=== PATIENT | male | born 1955 | race Caucasian/White ===

== ENCOUNTER 2016-07-31 16:55 | Inpatient (IN) | payer SELFPAY ==
--- NOTE | 2016-07-31 17:46 | Emergency Department Report ---
Chief Complaint: Abdominal Pain Stated Complaint: ABNORMAL LABS - HPI History of Present Illness: Patient c/o right-sided abdominal pain x 5 days for which he was evaluated at a clinic yesterday. Reports fever, lack of appetite, weakness, nausea, vomiting. States rx meds (Omeprazole, Flexeril, Levsin) which are helping his pain. States told to come to ED due to abnormal lab results. - Exam Vital Signs: Vital Signs 07/31/16 17:15 Temperature 101.1 F H Pulse Rate 125 H Respiratory 18 Rate Blood Pressure 118/73 [Right] O2 Sat by Pulse 94 Oximetry Physical Exam: General: NAD. Abdomen: Mild LLQ tenderness. MSE screening note: Focused history and physical exam performed. Due to findings the following was ordered: ED Medical Decision Making - Medical Decision Making CBC, CMP, Lipase will be ordered. Patient to see MD in main ED. ED Disposition for MSE Condition: Stable
[2016-07-31 18:36] LABS: Basophils % (Auto) 0.4 % (0.0-1.8); Eosinophils % (Auto) 0.1 % (0.0-4.3); Hematocrit 41.9 % (35.5-45.6); Hemoglobin 14.1 gm/dl (11.8-15.2); Mean Corpuscular HGB Conc 34 % (32-34); Mean Corpuscular Hemoglobin 30 pg (28-32); Mean Corpuscular Volume 90 fl (84-94); Platelet Count 205 K/mm3 (140-440); Red Blood Count 4.65 M/mm3 (3.65-5.03); Red Cell Distribution Width 13.7 % (13.2-15.2); White Blood Count 10.7 K/mm3 (4.5-11.0)
[2016-07-31 18:49] LABS: Albumin 3.7 g/dL (3.9-5); Albumin/Globulin Ratio 1.1 %; BUN/Creatinine Ratio 12.66; Bilirubin,Total 1.9 mg/dL (0.1-1.2); Calcium 8.2 mg/dL (8.4-10.2); Chloride 89.5 mmol/L (98-107); Potassium 4.1 mmol/L (3.6-5.0)
[2016-08-01 06:32] LABS: Bilirubin,Urine NEG (Negative); Blood,Urine MOD (Negative); Ketones,Urine NEG (Negative); Leukocyte Esterase,Urine NEG (Negative); Mucus,Urine 1+ /HPF; Nitrite,Urine NEG (Negative)
[2016-08-01] MEDS ORDERED: NACL ONE (11:53)
[2016-08-01] MEDS ORDERED: MORPHINE IV ONE ×2 (12:30→14:36)
[2016-08-01] MEDS ORDERED: NACL 0.9% 1000 ML 1,000 ML IV ONE (12:30)
[2016-08-01] MEDS ORDERED: TYLENOL PO ONE (12:31)
--- NOTE | 2016-08-01 14:21 | Cat Scan Report ---
CT of the abdomen and pelvis with IV contrast. Findings: There are bibasilar linear parenchymal opacities in the lung bases. There are multiple ill-defined areas of hypodensity in the liver parenchyma distributed around the margin of the gallbladder. There is at least one gallstone. There appears be mild pericholecystic fluid. The wall of the gallbladder is borderline in thickness measuring 4 mm. The spleen and pancreas are normal. There is a 1.5 x 2.0 cm soft tissue nodule in the left adrenal gland. The kidneys are normal in size and configuration. There are bilateral small renal cysts, the largest of which in the left kidney measures 1.5 cm in diameter. No hydronephrosis is seen. There is a very large densely calcified stone in the urinary bladder with irregular margins. This measures approximately 4.5 cm in diameter. There are no pelvic masses or abnormal fluid collections. There is no mesenteric inflammation. Impression: 1. Cholelithiasis with minimal pericholecystic fluid and borderline gallbladder wall thickening. The ill-defined areas of hypodensity in the liver which is adjacent to the gallbladder raises the possibility of small hepatic abscesses. Acute cholecystitis is suspected. 2. Left adrenal nodule, probably benign. 3. Multiple bilateral small renal cysts. 4. Large intravesical calcification/stone.
[2016-08-01] MEDS ORDERED: ZOFRAN IV ONE (14:36)
[2016-08-01] MEDS ORDERED: BABY ASPIRIN PO ONE (14:39)
--- NOTE | 2016-08-01 14:39 | Emergency Department Report ---
HPI - General Chief Complaint: Abdominal Pain Time Seen by Provider: 08/01/16 11:39 - HPI HPI: The patient is a 61-year-old male who presents for evaluation of abdominal pain. The patient reports right upper quadrant abdominal pain for the past 4-5 days, progressive, severe since last night, currently moderate, sharp in quality , exacerbated with eating, and associated with nausea and nonbilious, nonbloody emesis. The patient denies chest pain, dyspnea, diarrhea, blood in the stool, dark tarry stool, dysuria, hematuria, flank pain, genital discharge, inability to pass flatus. ED Past Medical Hx - Past Medical History Hx Hypertension: Yes - Surgical History Additional Surgical History: hernia right - Medications Home Medications: Home Medications Medication Instructions Recorded Confirmed Last Taken Type Acetaminophen [Tylenol] 500 mg PO Q6HR PRN 08/01/16 08/01/16 07/31/16 History Cyclobenzaprine [Flexeril] 10 mg PO QHS 08/01/16 08/01/16 07/31/16 History Hyoscyamine Subl [Levsin Sl 0.125 0.125 mg SL Q8H PRN 08/01/16 08/01/16 History TAB] Omeprazole Magnesium [PriLOSEC Otc] 20 mg PO BID 08/01/16 08/01/16 07/31/16 History ED Review of Systems ROS: Stated complaint: ABNORMAL LABS Other details as noted in HPI Constitutional: denies: fever ENT: denies: throat or neck pain Respiratory: denies: cough, shortness of breath Cardiovascular: denies: chest pain Endocrine: denies unexplained weight loss or gain Gastrointestinal: reports abdominal pain, nausea Genitourinary: denies: dysuria Musculoskeletal: denies: leg swelling Skin: denies: rash Neurological: denies: headache Hematological/Lymphatic: denies: easy bleeding or easy bruising Psych: denies sadness or hopelessness Physical Exam - Physical Exam Vital Signs: Vital Signs 07/31/16 08/01/16 08/01/16 17:15 03:50 08:12 Temperature 101.1 F H 98.2 F 99.6 F Pulse Rate 125 H 72 84 Respiratory 18 20 18 Rate Blood Pressure 130/90 Blood Pressure 118/73 122/87 [Right] O2 Sat by Pulse 94 99 98 Oximetry 08/01/16 12:07 Temperature 100.7 F H Pulse Rate 90 Respiratory 18 Rate Blood Pressure Blood Pressure 142/82 [Right] O2 Sat by Pulse 98 Oximetry Physical Exam: General: well-nourished, well-developed, no acute distress Head: Normocephalic, atraumatic Eyes: normal sclera ENT: Mucous membranes are pink and moist Neck: trachea midline, neck supple, No neck stiffness, no cervical adenopathy Respiratory: Breath sounds equal bilaterally, no wheezing, rales, or rhonchi Cardio: S1 and S2 present, no murmurs, rubs, gallops, capillary refill is brisk Abdomen: Normoactive bowel sounds, soft abdomen, RUQ tenderness to palpation present, no rigidity, no guarding or rebound tenderness Musc: No pitting edema Skin: No rash Neuro: no facial drooping, normal speech Psych: Normal affect ED Course Vital Signs 07/31/16 08/01/16 08/01/16 17:15 03:50 08:12 Temperature 101.1 F H 98.2 F 99.6 F Pulse Rate 125 H 72 84 Respiratory 18 20 18 Rate Blood Pressure 130/90 Blood Pressure 118/73 122/87 [Right] O2 Sat by Pulse 94 99 98 Oximetry 08/01/16 12:07 Temperature 100.7 F H Pulse Rate 90 Respiratory 18 Rate Blood Pressure Blood Pressure 142/82 [Right] O2 Sat by Pulse 98 Oximetry ED Medical Decision Making - Lab Data Result diagrams: 07/31/16 18:16 07/31/16 18:16 - Medical Decision Making The patient was seen and examined by myself. The patient is placed on a night monitor and continuous pulse ox. On initial evaluation, the patient was found to be in no distress. Evaluation orders were placed. The patient is given a tablet of Tylenol for his fever. The patient given IV morphine for his pain, Zofran, and 1 L normal saline fluid bolus. Lab results reveal elevated LFTs, high range of normal WBC of 10.7, and otherwise labs were grossly not concerning. CAT scan of the abdomen reveals cholelithiasis, pericholecystic fluid, and mild gallbladder wall thickening, consistent with acute cholecystitis. The patient is administered IV Zosyn. The on-call hospitalist service was contacted. They agreed to admit the patient for further treatment and close monitoring. The ED admit order was placed. The on-call general surgeon Dr. Powell was contacted. He agreed to consultation. The patient was admitted in guarded condition. Critical care attestation.: If time is entered above; I have spent that time in minutes in the direct care of this critically ill patient, excluding procedure time. ED Disposition Clinical Impression: Cholecystitis, acute, Acute abdominal pain in right upper quadrant Sepsis Qualifiers: Sepsis type: sepsis due to unspecified organism Qualified Code(s): A41.9 - Sepsis, unspecified organism Disposition: OP ADMITTED IP TO THIS HOSP Is pt being admited?: Yes Does the pt Need Aspirin: Yes Condition: Stable Referrals: PRIMARY CARE, [Primary Care Provider] - 3-5 Days Time of Disposition: 14:19
--- NOTE | 2016-08-01 14:54 | Admit Criteria Form ---
Admission Criteria Documentation: GALLBLADDER OR BILE DUCT INFLAMMATION OR STONE Clinical Indications for Admission to Inpatient Care ( Place 'X' for any and all applicable criteria): Admission is indicated for patients with ANY ONE of the following(1)(2)(3)(4)(5) : [X ]I. Acute cholecystitis as indicated by ALL of the following: [ X]a) Right upper quadrant pain, mass, or tenderness [X ]b) Systemic signs of inflammation indicated by ANY ONE of the following: [X ]i) Fever [ ]ii) C-reactive protein level greater than 10 mg/L (95 nmol/L) [ ]iii) White blood cell count greater than 10,000/mm3 (10 x109/L) or less than 4000/mm3 (4 x109/L) [ ]II. Inpatient admission required rather than observation care (Also use Gallbladder or Bile Duct Inflammation or Stone: Observation Care as appropriate) because of ANY ONE of the following: [ ]a) Common bile duct obstruction diagnosed [ ]b) Vomiting that is severe or persistent [ ]c) Severe pain requiring acute inpatient management [ ]d) Signs of intestinal obstruction or peritonitis [A] [ ]e) Severe electrolyte abnormalities requiring inpatient care [ ]f) Absent bowel sounds with complete ileus(8) [ ]g) Hemodynamic instability [ ]h) High fever or infection requiring inpatient admission as indicated by ANY ONE of the following (9): [ ]1) Appropriate outpatient or observation care antimicrobial Treatment. unavailable, not effective, or not feasible [ ]2) Temperature greater than 104.9 degrees F (40.5 degrees C) (oral) [ ]3) Temperature greater than 103.1 degrees F (39.5 degrees C) (oral) or less than 96.8 degrees F (36 degrees C) (rectal) that does not respond to all emergency treatment measures [ ]4) Documented bacteremia [ ]i) IV fluid to replace significant ongoing losses (greater than 3 L/m2 per day) [ ]j) Percutaneous or open drainage (eg, abscess, biliary tract) procedures [ ]k) Immediate inpatient surgery [ ]l) Other condition, treatment or monitoring requiring inpatient admission [ ]III. Acute cholangitis as indicated by ALL of the following(9)(10): [ ]a) Systemic signs of inflammation indicated by ANY ONE of the following: [ ]i) Fever [ ]ii) C-reactive protein level greater than 10 mg/L (95 nmol /L) [ ]iii) White blood cell count greater than 10,000/mm3 (10 x109/L) or less than 4000/mm3 (4 x109/L) [ ]b) Evidence of common bile duct disease indicated by ANY ONE of the following: [ ]i) Total serum bilirubin level greater than or equal to 2 mg/dL (34 micromoles/L) [ ]ii) Liver function test (alkaline phosphatase (ALP), r- glutamyltransferase (GGT), aspartate aminotransferase (AST), or alanine aminotransferase (ALT)) greater than 1.5 times the upper limit of normal[B] [ ]iii) Hepatobiliary imaging showing biliary dilatation or evidence of etiology (eg, stricture, stone, previously placed stent) Extended stay beyond goal length of stay may be needed for (1)(2)): [ ]a) Bacteremia or Hemodynamic instability [ ]b) Cholecystectomy [ ]c) Other surgical procedure(24) [ ]d) Percutaneous or endoscopic ultrasound-guided cholecystostomy The original [facility] content created by [facility] has been revised. The portions of the content which have been revised are identified through the use of italic text or in bold, and [facility] has neither reviewed nor approved the modified material. All other unmodified content is copyright [facility]. Please see references footnoted in the original [facility] edition 2016 Admission Criteria Met: Yes
[2016-08-01] MEDS: ZOSYN/NS 3.375GM/50ML 50 ML IV SCH ×3 (15:09→23:25)
[2016-08-01 15:48] LABS: INR 1.14 (0.87-1.13)
[2016-08-01 15:49] LABS: Partial Thromboplastin Time 27.7 Sec. (24.2-36.6)
--- NOTE | 2016-08-01 19:50 | Consultation ---
History of Present Illness Consult date: 08/01/16 Reason for consult: gallstones Chief complaint: Cholelithiasis. - History of present illness History of present illness: 61 years old male admitted to the hospital because of cholelithiasis and cholecystitis. We are consulted for surgical management. At the time of myelomalacia and the patient denies any pain. CT scan of the abdomen showed a gallstone in incidental finding of a urinary bladder stone. Patient reports that pain yesterday with some nausea and vomiting at home. Was seen at an outside clinic and an ultrasound showed gallstones. Past History Past Medical History: hypertension (borderline) Past Surgical History: hernia repair (right inguinal.) Social history: Medications and Allergies Allergies Allergy/AdvReac Type Severity Reaction Status Date / Time No Known Allergies Allergy Verified 08/01/16 11:56 Home Medications Medication Instructions Recorded Confirmed Last Taken Type Acetaminophen [Tylenol] 500 mg PO Q6HR PRN 08/01/16 08/01/16 07/31/16 History Cyclobenzaprine [Flexeril] 10 mg PO QHS 08/01/16 08/01/16 07/31/16 History Hyoscyamine Subl [Levsin Sl 0.125 0.125 mg SL Q8H PRN 08/01/16 08/01/16 History TAB] Omeprazole Magnesium [PriLOSEC Otc] 20 mg PO BID 08/01/16 08/01/16 07/31/16 History Active Meds: Active Medications Piperacillin Sod/Tazobactam Sod (Zosyn/Ns 3.375gm/50ml) 50 mls @ 100 mls/hr IV Q6HR [facility] Last Admin: 08/01/16 18:43 Dose: 100 mls/hr Influenza Virus Vaccine Quadrival (Fluarix Quad [id number](36 Mos+)) 60 mcg IM .ONCE ONE Stop: 08/02/16 12:01 Review of Systems - Gastrointestinal abdominal pain, nausea, vomiting, loss of appetite - Genitourinary urinary frequency Exam Vital Signs Temp Pulse Resp BP Pulse Ox 101.1 F H 125 H 18 118/73 94 07/31/16 17:15 07/31/16 17:15 07/31/16 17:15 07/31/16 17:15 07/31/16 17:15 - General physical appearance Positive: well developed, well nourished, no distress - Eyes Positive: PERRL, normal occular movement - ENT Positive: normal pinna, normal nares, normal mucosa, no hearing loss, no congestion - Neck Positive: no masses, no bruits, trachea midline, no venous distension - Respiratory Positive: normal expansion, normal respiratory effort, clear to auscultation - Cardiovascular Rhythm: regular Heart Sounds: Present: S1 & S2. Absent: rub, click - Extremities Extremities: no ischemia, pulses symmetrical, No edema - Breasts Breasts: normal, no mass, no skin changes - Abdomen Abdomen: Present: soft, bowel sounds normal. Absent: tender, distended - Genitourinary Male Genitourinary: deferred - Integumentary other (epidermal inclusion cyst on the mid back) - Neurologic Neurologic: alert and oriented to time, place and person, motor strength and sensation are grossly intact - Musculoskeletal normal gait, normal posture - Psychiatric Psychiatric: appropriate mood/affect, intact judgment & insight Results - Labs 07/31/16 18:16 07/31/16 18:16 - Imaging CT scan - abdomen: report reviewed, image reviewed Assessment and Plan Impression: #1. Cholelithiasis and cholecystitis. 2. Cystolithiasis. Recommendations: Laparoscopic cholecystectomy. The patient was explained the operative procedure. We also discussed risk and complications. Requested us to perform the procedure.
--- NOTE | 2016-08-02 03:23 | Event Note ---
Date: 08/01/16 Acute cholecystitis Transaminitis
[2016-08-02] MEDS ORDERED: DILAUDID IV PRN ×2 (03:26→12:09)
--- NOTE | 2016-08-02 04:15 | History and Physical Report ---
CHIEF COMPLAINT: Right upper quadrant pain for the last 5 days. HISTORY OF PRESENT ILLNESS: A 61-year-old male, who comes in for right upper quadrant pain for the last 5 days. It is better now. His pain has been sharp and associated with nausea and vomiting x 2. Denies any chest pain. The pain is about 8 to 10 on a scale of 1 to 10, but now it is 0/10. PAST MEDICAL HISTORY: Significant for gastroesophageal reflux disease and hypertension, not on any medication for blood pressure. PAST SURGICAL HISTORY: surgery. FAMILY HISTORY: No hypertension, no diabetes. SOCIAL HISTORY: Does not smoke. No alcohol, no recreational drugs. REVIEW OF SYSTEMS: CONSTITUTIONAL: No weight loss. No fever, no chills. HEENT: No sore throat. No postnasal drip. CARDIOVASCULAR AND RESPIRATORY SYSTEM: No shortness of breath, no chest pain. GASTROINTESTINAL: Some right upper quadrant pain, nausea, and vomiting x2 present. GENITOURINARY SYSTEM: No urinary frequency. CENTRAL NERVOUS SYSTEM: No syncope, no seizures. A 14-point review of systems done, otherwise essentially negative other than the right upper quadrant pain, which has resolved now. PHYSICAL EXAMINATION: GENERAL: Elderly male, cooperative during examination. VITAL SIGNS: Temperature 101.5, pulse is , blood pressure 118/73, and saturations were ____ 94%. HEENT: Unremarkable. Pupils are equal and reactive. NECK: Supple, no lymphadenopathy, no thyromegaly. LUNGS: Clear to auscultation and percussion. Good air entry. CARDIOVASCULAR: S1, S2 heard. No gallop, no murmur, no rub. Apical impulse in left fifth intercostal space and midclavicular line. ABDOMEN: Right upper quadrant tenderness present. No guarding, no rigidity. Hernial offices are normal. Bowel sounds are normal. EXTREMITIES: Good pedal pulses. No pedal edema. CENTRAL NERVOUS SYSTEM: Alert and oriented x 4, nonfocal exam. LABORATORY DATA: CT of the abdomen is consistent with acute cholecystitis. ASSESSMENT AND PLAN: 1. Acute cholecystitis. IV Zosyn, Surgery consult requested. 2. Hypertension, questionable. His blood pressure has been normal. Not on any blood pressure medications. 3. Gastroesophageal reflux disease. Continue omeprazole. Currently, he is n.p.o. for the time being. 4. Deep venous thrombosis prophylaxis, Lovenox 40 mg subcutaneous daily. My recommendations ____ laparoscopic cholecystectomy in the a.m. The patient is medically cleared for surgery. JOB# [id number] SHERI/MOMO
[2016-08-02] MEDS: ZOSYN/NS 3.375GM/50ML 50 ML IV SCH ×3 (06:16→18:00)
[2016-08-02] MEDS ORDERED: DIPRIVAN 10 MG/ML IV ONE (08:37)
[2016-08-02] MEDS ORDERED: DILAUDID ONE ×2 (08:38→10:32)
--- NOTE | 2016-08-02 09:08 | Anesthesia Day of Surgery ---
Anesthesia Day of Surgery - Day of Surgery Patient Examined: Yes Patient H&P Reviewed: Yes Patient is NPO: Yes
[2016-08-02] MEDS ORDERED: VERSED IV NR (09:10)
--- NOTE | 2016-08-02 09:10 | Anesthesia Consultation ---
Anesthesia Consult and Med Hx Date of service: 08/02/16 - Airway Anesthetic Teeth Evaluation: Bridges (permanent upper and lower) Mallampati Class: Class III Intubation Access Assessment: Possibly Difficult - Pulmonary Exam CTA: Yes - Cardiac Exam Cardiac Exam: RRR - Pre-Operative Health Status ASA Pre-Surgery Classification: ASA2 Proposed Anesthetic Plan: General - Pulmonary Hx Smoking: No Hx Asthma: No COPD: No Hx Pneumonia: No Hx Sleep Apnea: Yes (high risk) - Cardiovascular System Hx Hypertension: Yes (not on any medications) - Central Nervous System Hx Seizures: No CVA: No Hx Psychiatric Problems: No - Gastrointestinal Hx Gastroesophageal Reflux Disease: Yes - Endocrine Hx Renal Disease: No Hx End Stage Renal Disease: No Hx Liver Disease: No - Other Systems Hx Cancer: No Hx Obesity: Yes - Additional Comments Anesthesia Medical History Comments: NAC
[2016-08-02] MEDS ORDERED: LACTATED RINGERS 1,000 ML IV SCH (10:00)
[2016-08-02] MEDS ORDERED: PEPCID PO NR (10:00)
[2016-08-02] MEDS ORDERED: NACL 0.9% IR ONE (10:01)
[2016-08-02] MEDS ORDERED: MARCAINE 0.5% INFILTRATI ONE (10:01)
[2016-08-02] MEDS ORDERED: XYLOCAINE MPF 2% ONE (10:03)
[2016-08-02] MEDS ORDERED: ZEMURON IV ONE (10:04)
[2016-08-02] MEDS ORDERED: BLOXIVERZ ONE (10:11)
[2016-08-02] MEDS ORDERED: ROBINUL ONE (10:12)
--- NOTE | 2016-08-02 10:26 | History and Physical Report ---
History of Present Illness Date of examination: 08/02/16 Date of admission: 08/01/16 15:08 Chief complaint: Abdominal pain, nausea, vomiting, fever and weakness for 5 days History of present illness: Patient is a 61-year-old male who was experiencing right upper quadrant abdominal pain, nausea and vomiting, fever, loss of appetite and weakness for 5 days. Patient was referred to the emergency department because of abnormal lab results. CT scan of the abdomen was obtained and it showed cholelithiasis, minimal pericholecystic fluid and borderline gallbladder wall thickening. Surgical consult was obtained and laparoscopic cholecystectomy was done Past History Past Medical History: GERD, hypertension (borderline) Past Surgical History: hernia repair (right inguinal.) Social history: Medications and Allergies Allergies Allergy/AdvReac Type Severity Reaction Status Date / Time No Known Allergies Allergy Verified 08/01/16 11:56 Home Medications Medication Instructions Recorded Confirmed Last Taken Type Acetaminophen [Tylenol] 500 mg PO Q6HR PRN 08/01/16 08/01/16 07/31/16 History Cyclobenzaprine [Flexeril] 10 mg PO QHS 08/01/16 08/01/16 07/31/16 History Hyoscyamine Subl [Levsin Sl 0.125 0.125 mg SL Q8H PRN 08/01/16 08/01/16 History TAB] Omeprazole Magnesium [PriLOSEC Otc] 20 mg PO BID 08/01/16 08/01/16 07/31/16 History Active Meds: Active Medications Enoxaparin Sodium (Lovenox) 40 mg SUB-Q QDAY [facility] Famotidine (Pepcid) 20 mg PO PREOP NR Stop: 08/02/16 23:59 Last Admin: 08/02/16 09:27 Dose: 20 mg Hydromorphone HCl (Dilaudid) 1 mg IV Q3H PRN PRN Reason: Pain , Severe (7-10) Piperacillin Sod/Tazobactam Sod (Zosyn/Ns 3.375gm/50ml) 50 mls @ 100 mls/hr IV Q6HR [facility] Last Admin: 08/02/16 06:16 Dose: 100 mls/hr Lactated Ringer's (Lactated Ringers) 1,000 mls @ 75 mls/hr IV DIRECT [facility] Last Admin: 08/02/16 09:27 Dose: 75 mls/hr Influenza Virus Vaccine Quadrival (Fluarix Quad [id number](36 Mos+)) 60 mcg IM .ONCE ONE Stop: 08/02/16 12:01 Midazolam HCl (Versed) 2 mg IV PREOP NR Stop: 08/02/16 23:59 Last Admin: 08/02/16 09:28 Dose: 2 mg Review of Systems Constitutional: fever, weakness, poor appetite Ears, nose, mouth and throat: no ear pain, no nasal congestion, no dysphagia, no headache Cardiovascular: no chest pain, no palpitations, no shortness of breath, no dyspnea on exertion Respiratory: no cough, no shortness of breath, no wheezing Gastrointestinal: abdominal pain, nausea, vomiting, loss of appetite, no change in bowel habits, no BRBPR, no melena Genitourinary Male: no dysuria, no hematuria, no flank pain, no urinary frequency Musculoskeletal: no neck pain, no low back pain, no shooting leg pain, no muscle cramps, no limitation of motion, no gait dysfunction Integumentary: no rash, no pruritis, no sores, no lesions Neurological: no vertigo, no headaches, no motor disturbance Psychiatric: no anxiety, no depression Endocrine: no cold intolerance, no heat intolerance, no polyphagia, no excessive thirst, no polydipsia, no polyuria Hematologic/Lymphatic: no lymphadenopathy Allergic/Immunologic: no seasonal allergies Exam - Constitutional Vitals: Temp Pulse Resp BP Pulse Ox 100.7 F H 74 16 106/69 96 08/02/16 08:50 08/02/16 08:50 08/02/16 08:50 08/02/16 08:50 08/02/16 08:50 General appearance: Present: no acute distress - EENT Eyes: Present: PERRL, EOM intact ENT: hearing intact, clear oral mucosa, dentition normal - Neck Neck: Present: supple, normal ROM. Absent: enlarged thyroid, masses or JVD, carotid bruits - Respiratory Respiratory: bilateral: CTA - Cardiovascular Rhythm: regular Heart Sounds: Present: S1 & S2. Absent: gallop, systolic murmur, diastolic murmur - Extremities Extremities: no ischemia, pulses intact, pulses symmetrical, No edema - Abdominal General gastrointestinal: Present: soft, non-distended, normal bowel sounds Male genitourinary: Present: deferred - Rectal Rectal Exam: deferred - Integumentary Integumentary: Present: clear, warm, dry - Musculoskeletal Musculoskeletal: strength equal bilaterally - Psychiatric Psychiatric: appropriate mood/affect - Neurologic Neurologic: moves all extremities Results - Labs CBC & Chem 7: 07/31/16 18:16 07/31/16 18:16 Assessment and Plan Right upper quadrant abdominal pain: Resolving, status post cholecystectomy. Continue with pain meds. Cholecystitis: Status post laparoscopic cholecystectomy. Continue with IV Zosyn. Surgery following. GERD: Continue with omeprazole 20 mg daily. Hypertensioncontrolled: Continue with antihypertensive meds. DVT prophylaxis: Continue with Lovenox 40 mg subcutaneous daily - Patient Problems (1) Acute abdominal pain in right upper quadrant Current Visit: Yes Status: Acute Plan to address problem: Resolving s/p cholecystectomy. Continue with pain meds. (2) Cholecystitis, acute Current Visit: Yes Status: Acute Plan to address problem: S/p cholecystectomy. Surgery following. (3) GERD (gastroesophageal reflux disease) Current Visit: Yes Status: Chronic Plan to address problem: Continue with PPI (4) HTN (hypertension), benign Current Visit: Yes Status: Chronic Plan to address problem: Controlled, continue with antihypertensive meds
[2016-08-02] MEDS ORDERED: ZOFRAN ONE (11:01)
[2016-08-02] MEDS ORDERED: ZOFRAN IV PRN (11:44)
[2016-08-02] MEDS ORDERED: D5LR 1,000 ML IV SCH ×2 (12:00→14:16)
[2016-08-02] MEDS ORDERED: FLUARIX QUAD 2016-2017(36 MOS+) IM ONE (12:00)
--- NOTE | 2016-08-02 12:05 | Operative Report ---
Operative Report Operative Report: Date of operation: 08/02/2016. Preoperative diagnosis: Acute cholecystitis and cholelithiasis. Postoperative diagnosis: Acute cholecystitis and cholelithiasis. Operation: Laparoscopic cholecystectomy. Surgeon: Tyrone Powell M.D. Findings: 61 years old male admitted with diagnosis of cholelithiasis and cholecystitis. Operation we found an acutely inflamed gallbladder with gallstones. Common bile duct seemed to be normal. There was a lot of inflammation around the gallbladder seemed to be perforated towards the liver bed. Procedure: Under general anesthesia the patient's abdomen was prepped and draped in the usual sterile manner. After proper timeout Marcaine 0.5% was injected in the infraumbilical area and a 5 mm incision was made at that site with a #11 blade. Through this incision a Veress needle was passed into abdominal cavity which was insufflated with carbon dioxide to 15 mmHg. After this was done 10 mm port was put in the epigastric area after injecting Marcaine 0.5% and under direct vision. Then two 5 mm ports were put in the right sub-costal area also after injecting Marcaine 0.5% and under direct vision. The gallbladder was emptied of foul smelling bilious fluid. Cultures from the fluid were taken. This was done using the laparoscopic needle through the most medial 5 mm port. Then the gallbladder was grasped by the fundus and infundibulum. Omental adhesions had been taken down previously using an Endo Kitner. We started dissection of the infundibulum towards the cystic door using the Endo Kitner. The cystic duct was identified as well as the common bile duct which was fairly close to the gallbladder. Cystic duct was identified using the Endo Kitner, hydraulic dissection with the irrigation system and then it was divided distal to proximal hemoclips. The cystic artery was identified and also divided distal to the hemoclips. Then the gallbladder was dissected from the gallbladder bed using the J-hook electrocautery. The gallbladder was put in an Endobag and removed through the epigastric port site at which site the fascia had to be opened about 1 more centimeter fit the gallbladder in the Endobag. Then the port was replaced and the right upper quadrant and gallbladder fossa were irrigated with copious amount of normal saline solution. All bleeders in the gallbladder fossa were cauterized with electrocautery. A piece of Surgicel was put in low in the gallbladder fossa towards the common bile duct. Potatoe flake powder was blown in to the gallbladder fossa. After this was done a #19 Drew drain was passed in the abdominal cavity by putting the tail of fit through the epigastric port and pulling it out through the most lateral subcostal port. The drain was put in the gallbladder fossa. The lead was fixed to the skin with a 2-0 silk suture. Then the other 25 mm ports were removed under direct vision. The telescope was removed and the abdominal cavity was emptied of carbon dioxide through the epigastric port. The port was removed. Then the fascia at the epigastric port site was approximated with 2 figure of 8 stitches of 0 Vicryl. The wounds were irrigated with normal saline solution. Then the skin edges were approximated with interrupted running suture of 4-0 Vicryl. The wounds were asked with Dermaflex. The patient was awakened, extubated and transferred to the recovery room in stable condition. Estimated blood loss: 50-75 mL. Intraoperative fluid replacement: Crystalloids. Condition: Stable. Complications: None. Specimen: Gallbladder.
--- NOTE | 2016-08-02 12:09 | Post Anesthesia Evaluation ---
- Post Anesthesia Evaluation Patient Participated: Yes Airway Patent: Yes Stable Respiratory Function: Yes Nausea/Vomiting: No Temp > 96.8F: Yes Pain Manageable: Yes Adequeate Hydration: Yes Anesthesia Complications: No
[2016-08-02] MEDS: LOVENOX SUB-Q SCH (12:39)
[2016-08-02] MEDS ORDERED: LACTATED RINGERS 1,000 ML ONE (12:42)
[2016-08-02 17:35] VITALS: BP 140/75
--- NOTE | 2016-08-02 18:12 | Progress Note ---
Assessment and Plan Right upper quadrant abdominal pain: Resolving, status post cholecystectomy. Continue with pain meds. Cholecystitis: Status post laparoscopic cholecystectomy. Continue with IV Zosyn. Surgery following. GERD: Continue with omeprazole 20 mg daily. Hypertensioncontrolled: Continue with antihypertensive meds. DVT prophylaxis: Continue with Lovenox 40 mg subcutaneous daily - Patient Problems (1) Acute abdominal pain in right upper quadrant Current Visit: Yes Status: Acute (2) Cholecystitis, acute Current Visit: Yes Status: Acute (3) GERD (gastroesophageal reflux disease) Current Visit: Yes Status: Chronic (4) HTN (hypertension), benign Current Visit: Yes Status: Chronic Subjective Date of service: 08/02/16 Principal diagnosis: Abdominal pain, acute cholecyctitis, GERD Interval history: Still has abdominal pain. Had Surgery today Objective - Constitutional Vitals: Vital Signs - 12hr 08/02/16 08/02/16 08/02/16 08:03 08:47 08:50 Temperature 98.8 F 100.7 F H Pulse Rate 74 Pulse Rate [ 73 Apical] Pulse Rate [ 64 Right Radial] Respiratory 16 14 16 Rate Blood Pressure 106/69 Blood Pressure 141/73 [Left Arm] O2 Sat by Pulse 98 96 Oximetry 08/02/16 08/02/16 08/02/16 11:45 11:50 11:55 Temperature 97.0 F L Pulse Rate 78 75 74 Pulse Rate [ Apical] Pulse Rate [ Right Radial] Respiratory 15 14 14 Rate Blood Pressure 145/71 152/76 Blood Pressure [Left Arm] O2 Sat by Pulse 98 97 97 Oximetry 08/02/16 08/02/16 08/02/16 12:00 12:15 12:30 Temperature Pulse Rate 72 72 63 Pulse Rate [ Apical] Pulse Rate [ Right Radial] Respiratory 15 13 17 Rate Blood Pressure 155/87 117/93 127/77 Blood Pressure [Left Arm] O2 Sat by Pulse 100 96 95 Oximetry 08/02/16 08/02/16 08/02/16 12:45 13:00 13:15 Temperature Pulse Rate 65 64 69 Pulse Rate [ Apical] Pulse Rate [ Right Radial] Respiratory 16 13 17 Rate Blood Pressure 129/75 126/85 129/70 Blood Pressure [Left Arm] O2 Sat by Pulse 95 95 96 Oximetry 08/02/16 08/02/16 08/02/16 13:40 14:00 16:30 Temperature 99.1 F 98.5 F 98.0 F Pulse Rate 66 Pulse Rate [ Apical] Pulse Rate [ 67 67 Right Radial] Respiratory 18 16 16 Rate Blood Pressure 137/84 Blood Pressure 148/78 140/75 [Left Arm] O2 Sat by Pulse 97 100 99 Oximetry General appearance: Present: no acute distress, mild distress - EENT Eyes: PERRL ENT: hearing intact, clear oral mucosa Ears: bilateral: normal - Neck Neck: supple - Respiratory Respiratory effort: normal Respiratory: bilateral: CTA - Breasts Breasts: normal - Cardiovascular Rhythm: regular Heart Sounds: Present: S1 & S2. Absent: gallop, rub Extremities: pulses intact, No edema, normal color, Full ROM - Gastrointestinal General gastrointestinal: Present: soft, tender, non-distended, normal bowel sounds - Genitourinary Male genitourinary: normal - Integumentary Integumentary: clear, warm, dry - Musculoskeletal Musculoskeletal: 1, strength equal bilaterally - Neurologic Neurologic: moves all extremities - Psychiatric Psychiatric: memory intact, appropriate mood/affect, intact judgment & insight - Labs CBC & Chem 7: 07/31/16 18:16 07/31/16 18:16
[2016-08-03] MEDS: ZOSYN/NS 3.375GM/50ML 50 ML IV SCH ×3 (00:29→12:00)
[2016-08-03 06:00] LABS: Basophils % (Auto) 0.3 % (0.0-1.8); Eosinophils % (Auto) 0.1 % (0.0-4.3); Hematocrit 34.3 % (35.5-45.6); Hemoglobin 11.5 gm/dl (11.8-15.2); Mean Corpuscular HGB Conc 34 % (32-34); Mean Corpuscular Hemoglobin 30 pg (28-32); Mean Corpuscular Volume 90 fl (84-94); Platelet Count 193 K/mm3 (140-440); Red Blood Count 3.79 M/mm3 (3.65-5.03); Red Cell Distribution Width 13.8 % (13.2-15.2)
[2016-08-03 06:25] LABS: Alanine Aminotransferase 125 units/L (7-56); Albumin 2.7 g/dL (3.9-5); Albumin/Globulin Ratio 0.8 %; Alkaline Phosphatase 92 units/L (35-129); Anion Gap 16 mmol/L; BUN/Creatinine Ratio 15.55; Bilirubin,Total 0.9 mg/dL (0.1-1.2); Blood Urea Nitrogen 14 mg/dL (9-20); Calcium 7.6 mg/dL (8.4-10.2); Carbon Dioxide 26 mmol/L (22-30); Glucose 158 mg/dL (75-100); Potassium 4.2 mmol/L (3.6-5.0); Sodium 136 mmol/L (137-145); Total Protein 6.2 g/dL (6.3-8.2)
[2016-08-03] MEDS ORDERED: COMPAZINE PO PRN (08:56)
[2016-08-03] MEDS ORDERED: NORCO 5/325 PO PRN (08:56)
--- NOTE | 2016-08-03 09:03 | Progress Note ---
Assessment and Plan Impression: Doing well after laparoscopic cholecystectomy for acute cholecystitis and cholelithiasis. Plan: May go home with drain in place, PO antibiotics, [place] for pain and Compazine for nausea. Follow-up with me in my office on 08/08/2016. Subjective Date of service: 08/03/16 Patient Reports: Positive: feels better, voiding w/o difficulty, other (reports pain at the operative site.) Objective Afebrile. - Abdomen soft, tender (operative sites.), bowel sounds normal, wound (dressings dry and clear.) - Labs 08/03/16 05:24 08/03/16 05:24 Diabetes panel 08/03/16 Range/Units 05:24 Sodium 136 L (137-145) mmol/L Potassium 4.2 (3.6-5.0) mmol/L Chloride 98.0 (98-107) mmol/L Carbon Dioxide 26 (22-30) mmol/L BUN 14 (9-20) mg/dL Creatinine 0.9 (0.8-1.5) mg/dL Glucose 158 H (75-100) mg/dL Calcium 7.6 L (8.4-10.2) mg/dL AST 135 H (5-40) units/L ALT 125 H (7-56) units/L Alkaline Phosphatase 92 (35-129) units/L Total Protein 6.2 L (6.3-8.2) g/dL Albumin 2.7 L (3.9-5) g/dL Calcium panel 08/03/16 Range/Units 05:24 Calcium 7.6 L (8.4-10.2) mg/dL Albumin 2.7 L (3.9-5) g/dL Pituitary panel 08/03/16 Range/Units 05:24 Sodium 136 L (137-145) mmol/L Potassium 4.2 (3.6-5.0) mmol/L Chloride 98.0 (98-107) mmol/L Carbon Dioxide 26 (22-30) mmol/L BUN 14 (9-20) mg/dL Creatinine 0.9 (0.8-1.5) mg/dL Glucose 158 H (75-100) mg/dL Calcium 7.6 L (8.4-10.2) mg/dL Adrenal panel 08/03/16 Range/Units 05:24 Sodium 136 L (137-145) mmol/L Potassium 4.2 (3.6-5.0) mmol/L Chloride 98.0 (98-107) mmol/L Carbon Dioxide 26 (22-30) mmol/L BUN 14 (9-20) mg/dL Creatinine 0.9 (0.8-1.5) mg/dL Glucose 158 H (75-100) mg/dL Calcium 7.6 L (8.4-10.2) mg/dL Total Bilirubin 0.9 (0.1-1.2) mg/dL AST 135 H (5-40) units/L ALT 125 H (7-56) units/L Alkaline Phosphatase 92 (35-129) units/L Total Protein 6.2 L (6.3-8.2) g/dL Albumin 2.7 L (3.9-5) g/dL
[2016-08-03] MEDS: LOVENOX SUB-Q SCH (12:00)
[2016-08-03] MEDS ORDERED: FLUARIX QUAD 2016-2017(36 MOS+) IM ONE (12:00)
== END 2016-08-03 13:00 | disposition home or self-care (01) | DRG 419 ==
LOC: ED 16:55 → 3A 08-01 15:08 → 2B-SURG 08-02 13:35
PROVIDERS: ADMIT Internal Medicine; ATTEND Family Medicine
PROC: 0FT44ZZ Resection of Gallbladder, Percutaneous Endoscopic Approach (ICD-10-PCS; principal; 2016-08-02)
PROC: 0W9F40Z Drainage of Abdominal Wall with Drainage Device, Percutaneous Endoscopic Approach (ICD-10-PCS; 2016-08-02)
DX: K80.00 Calculus of gallbladder with acute cholecystitis without obstruction (principal); I10 Essential (primary) hypertension; N21.0 Calculus in bladder; K21.9 Gastro-esophageal reflux disease without esophagitis; G47.30 Sleep apnea, unspecified; E66.9 Obesity, unspecified; Z98.890 Other specified postprocedural states; Z68.31 Body mass index [BMI] 31.0-31.9, adult
CPT/HCPCS: 36415; 74177; 80053; 81001; 82140; 83690; 85025; 85610; 85730; 87040; 87075; 87076; 87116; 87186; 88304; 90686; 96361; 96374; 96375; J1170; J1650; J2250; J2270; J2405; J2543; J2704; J2710; J7030; J7120; J7121; Q0164; Q9967

== ENCOUNTER 2018-01-29 11:24 | Day surgery (SDC) | payer OTHER, SELFPAY ==
[~2018-01-29 11:24] MED LIST: ANCEF/STERILE WATER 2 GM/20 ML IV NR
--- NOTE | 2018-01-29 12:25 | Anesthesia Day of Surgery ---
Anesthesia Day of Surgery - Day of Surgery Patient Examined: Yes Patient H&P Reviewed: Yes Patient is NPO: Yes
--- NOTE | 2018-01-29 12:26 | Anesthesia Consultation ---
Anesthesia Consult and Med Hx Date of service: 01/29/18 - Airway Anesthetic Teeth Evaluation: Bridges (upper and lower) ROM Head & Neck: Adequate Mental/Hyoid Distance: Adequate Mallampati Class: Class III Intubation Access Assessment: Possibly Difficult - Pulmonary Exam CTA: Yes - Cardiac Exam Cardiac Exam: RRR - Pre-Operative Health Status ASA Pre-Surgery Classification: ASA2 Proposed Anesthetic Plan: General - Pulmonary Hx Smoking: No Hx Asthma: No COPD: No Hx Pneumonia: No Hx Sleep Apnea: Yes (high risk) - Cardiovascular System Hx Hypertension: Yes - Central Nervous System Hx Seizures: No CVA: No Hx Psychiatric Problems: No - Gastrointestinal Hx Gastroesophageal Reflux Disease: Yes - Endocrine Hx Renal Disease: No Hx End Stage Renal Disease: No Hx Liver Disease: No - Other Systems Hx Alcohol Use: Yes (OCC) Hx Substance Use: No Hx Cancer: No Hx Obesity: Yes
[2018-01-29] MEDS ORDERED: NACL 0.9% 1000 ML 1,000 ML IV SCH (13:11)
[2018-01-29] MEDS ORDERED: VERSED IV NR (13:11)
[2018-01-29] MEDS ORDERED: SUBLIMAZE ONE (13:19)
[2018-01-29] MEDS ORDERED: DIPRIVAN 10 MG/ML IV ONE (13:19)
[2018-01-29 13:21] VITALS: BP 120/77
[2018-01-29] MEDS ORDERED: XYLOCAINE MPF 2% ONE (13:21)
[2018-01-29] MEDS ORDERED: PEPCID IV NR (13:30)
== END 2018-01-29 13:40 | disposition home or self-care (01) ==
LOC: OR 11:24
PROVIDERS: ATTEND Surgery
DX: M79.89 Other specified soft tissue disorders (principal); I10 Essential (primary) hypertension; K21.9 Gastro-esophageal reflux disease without esophagitis; G47.30 Sleep apnea, unspecified; E66.9 Obesity, unspecified; Z53.8 Procedure and treatment not carried out for other reasons
CPT/HCPCS: 36415; 84132; J2250; J2704; J3010; J7030

== ENCOUNTER 2018-02-12 09:40 | Day surgery (SDC) | payer OTHER ==
[~2018-02-12 09:40] MED LIST changes: +NACL 0.9% 1000 ML 1,000 ML IV SCH; +VERSED IV NR
[2018-02-12] MEDS ORDERED: SUBLIMAZE ONE (09:46)
[2018-02-12] MEDS ORDERED: XYLOCAINE MPF 2% ONE (09:46)
[2018-02-12] MEDS ORDERED: DIPRIVAN 10 MG/ML IV ONE ×3 (09:47→11:40)
[2018-02-12] MEDS ORDERED: XYLOCAINE 1%/ EPI 1:100,000 INFILTRATI ONE ×2 (10:40→11:23)
[2018-02-12] MEDS ORDERED: MARCAINE 0.25% INFILTRATI ONE ×2 (10:40→11:23)
--- NOTE | 2018-02-12 10:47 | Anesthesia Consultation ---
Anesthesia Consult and Med Hx Date of service: 02/12/18 - Airway Anesthetic Teeth Evaluation: Poor ROM Head & Neck: Adequate Mental/Hyoid Distance: Adequate Mallampati Class: Class II Intubation Access Assessment: Probably Good - Pulmonary Exam CTA: Yes - Cardiac Exam Cardiac Exam: RRR - Pre-Operative Health Status ASA Pre-Surgery Classification: ASA2 Proposed Anesthetic Plan: MAC - Pulmonary Hx Smoking: No Hx Asthma: No COPD: No Hx Pneumonia: No Hx Sleep Apnea: Yes (high risk) - Cardiovascular System Hx Hypertension: Yes - Central Nervous System Hx Seizures: No CVA: No Hx Psychiatric Problems: No - Gastrointestinal Hx Gastroesophageal Reflux Disease: Yes - Endocrine Hx Renal Disease: No Hx End Stage Renal Disease: No Hx Liver Disease: No - Other Systems Hx Alcohol Use: Yes (OCC) Hx Substance Use: No Hx Cancer: No Hx Obesity: Yes
[2018-02-12] MEDS ORDERED: DILAUDID IV PRN (10:48)
[2018-02-12] MEDS ORDERED: TORADOL IV PRN (10:48)
[2018-02-12] MEDS ORDERED: ZOFRAN IV PRN (10:48)
--- NOTE | 2018-02-12 10:48 | Anesthesia Day of Surgery ---
Anesthesia Day of Surgery - Day of Surgery Patient Examined: Yes Patient H&P Reviewed: Yes Patient is NPO: Yes
[2018-02-12] MEDS ORDERED: NACL 0.9% IR ONE (11:23)
[2018-02-12] MEDS ORDERED: NACL 0.9% 1000 ML 1,000 ML ONE (11:40)
--- NOTE | 2018-02-12 11:58 | Short Stay Summary ---
Short Stay Documentation Date of service: 02/12/18 - History H&P: obtained from office - Allergies and Medications Current Medications: Allergies No Known Allergies Allergy (Verified 02/05/18 11:30) Home Medications Medication Instructions Recorded Confirmed Last Taken Type Lisinopril/Hydrochlorothiazide 1 each PO DAILY 01/27/18 02/12/18 02/11/18 History [Zestoretic 10-12.5 mg Tablet] Active Medications Cefazolin Sodium (Ancef/Sterile Water 2 Gm/20 Ml) 2 gm IV PREOP NR Stop: 02/12/18 12:00 Hydromorphone HCl (Dilaudid) 0.5 mg IV Q10MIN PRN PRN Reason: Pain , Severe (7-10) Sodium Chloride (Nacl 0.9% 1000 Ml) 1,000 mls @ 100 mls/hr IV DIRECT GWYN Last Admin: 02/12/18 10:30 Dose: 100 mls/hr Ketorolac Tromethamine (Toradol) 15 mg IV ONCE PRN PRN Reason: Pain, Mild (1-3) Midazolam HCl (Versed) 2 mg IV PREOP NR Stop: 02/12/18 23:59 Last Admin: 02/12/18 10:54 Dose: 2 mg Ondansetron HCl (Zofran) 4 mg IV ONCE PRN PRN Reason: Nausea And Vomiting - Brief post op/procedure progress note Date of procedure: 02/12/18 Pre-op diagnosis: Soft tissue mass back >3cm Post-op diagnosis: same Procedure: Excision STM back >3cm Anesthesia: MAC, local Surgeon: KAILYN MENENDEZ Estimated blood loss: none Pathology: list (Soft tissue mass back) Specimen disposition: to lab Condition: stable - Disposition Condition at discharge: Good Disposition: DC-01 TO HOME OR SELFCARE Short Stay Discharge Plan Activity: no restrictions Diet: regular Wound: remove dressing (02/14/18 and then may shower) Follow up with: SRINIVAS BERMUDEZ MD [Primary Care Provider] - 7 Days KAILYN MENENDEZ MD [Staff Physician] - 7 Days Prescriptions: oxyCODONE /ACETAMINOPHEN [Percocet 5/325] 1 tab PO Q4HR PRN #20 tab PRN Reason: Pain , Severe (7-10)
[2018-02-12 12:32] VITALS: BP 123/81
--- NOTE | 2018-02-18 23:01 | Operative Report ---
PREOPERATIVE DIAGNOSIS: Soft tissue mass on back, greater than 3 cm. POSTOPERATIVE DIAGNOSIS: Soft tissue mass on back, greater than 3 cm. PROCEDURE: Excision of soft tissue mass from back, greater than 3 cm. SURGEON: Mack Mandel MD ANESTHESIA: MAC and local. ESTIMATED BLOOD LOSS: Minimal. SPECIMEN: Soft tissue mass. COMPLICATIONS: None. INDICATIONS: This is a 62-year-old gentleman who has a large soft tissue mass on his back presents now for excision for diagnostic purposes. DESCRIPTION OF PROCEDURE: The patient was brought to the operating room, identified, placed in the supine position and then moved into a prone position. His pressure points and joints were protected. He was given IV sedation. We prepped and draped the area. Prior to any incision, the area was injected with local. We made an incision over top of the mass itself and then dissected out of the soft tissues with cautery. This went down to the fascia. Once the mass was removed, it was sent to pathology. We examined the pocket and found that we had good hemostasis. This was then irrigated and the skin was then closed with suture. He tolerated the procedure well without complications and was then transferred to the PACU in stable condition. JOB# [id number] BSAroldo/MOMO
== END 2018-02-12 12:45 | disposition home or self-care (01) ==
LOC: OR 09:40
PROVIDERS: ATTEND Surgery
DX: L72.0 Epidermal cyst (principal); G47.30 Sleep apnea, unspecified; K21.9 Gastro-esophageal reflux disease without esophagitis; I10 Essential (primary) hypertension; E66.9 Obesity, unspecified; Z68.31 Body mass index [BMI] 31.0-31.9, adult; Z79.899 Other long term (current) drug therapy; Z72.89 Other problems related to lifestyle; Z98.890 Other specified postprocedural states
CPT/HCPCS: 21930; 88304; J0690; J2250; J2704; J3010; J7030; 88307